=== PATIENT | male | born 1950 | race Caucasian/White ===

== ENCOUNTER 2016-05-21 08:02 | Day surgery (SDC) | END 2016-05-21 14:57 | disposition home or self-care (01) | DX: K80.10 Calculus of gallbladder with chronic cholecystitis without obstruction (principal); E11.9 Type 2 diabetes mellitus without complications | CPT/HCPCS: 47562; 82962; 88304; J0330; J1100; J1170; J2175; J2370; J2405; J2765; J3010 ==

== ENCOUNTER 2017-04-06 13:06 | Emergency (ER) | payer MEDICARE, OTHER ==
[~2017-04-06] VITALS: Wt 91.1 kg
[~2017-04-06 13:06] MED LIST: CHOL2000 PO; ERYT1OIN6 LEFT EYE; IBUP-1542 PO; METF500T4 PO; SITA1TAB7 PO; TAMS0.4C2 PO
--- NOTE | 2017-04-06 13:36 | ERD ---
ER Documentation Chief Complaint Chief Complaint LEFT EAR CLOGGED FOR THE PAST FEW DAYS. NO DRAINAGE NOTED. HPI 67-year-old male, previously healthy, presents to the emergency department complaining of progressive left ear discomfort for 1 week associated with clogging sensation and itchiness. Denies pain, fever, no ear drainage, no foreign body. He attempted some [id number] medication without improvement of the symptoms. ROS A 12-point review of systems was performed and negative other than presented in the history of present illness. SYSTEMIC symptoms: no fever, chills, no night sweats, no weight loss EYE symptoms: No blurred vision, no eye discharge OTOLARYNGEAL symptoms: Per HPI CARDIOVASCULAR symptoms: No chest pain or discomfort, no palpitations. PULMONARY symptoms: No dyspnea, no cough, no wheezing. GASTROINTESTINAL symptoms: No abdominal pain, no nausea, no vomiting, no diarrhea MUSCULOSKELETAL symptoms: No arthralgias, no muscle aches. NEUROLOGY symptoms: No confusion, no syncope, no numbness or tingling. SKIN: No rashes Medications Home Meds Active Scripts Carbamide Peroxide (Ear Wax Drops) 15 Ml Drops, 5-10 DROP OTIC TID for 5 Days, # 1 BOTTLE Prov:JESSE MCMILLAN MD 04/06/17 Ibuprofen* (Motrin*) 600 Mg Tab, 600 MG PO Q6, #30 TAB Prov:HANS MALIK PA-C 02/16/16 Erythromycin (Erythromycin Opth) 3.5 Gm Oint..gm., 1 APPLIC LEFT EYE QID for 7 Days, EA Prov:STARLA HALLMAN PA-C 03/08/15 Reported Medications Metformin* (Glucophage*) 500 Mg Tab, 1 TAB PO AC BREAKFAST DINNER, #60 05/21/16 Cholecalciferol* (Vitamin D3*) 2,000 Unit Cap, 2000 UNIT PO DAILY, CAP 11/17/14 Sitagliptin Phos-Metformin Hcl (Janumet) 50-1,000 Mg Tablet, 1 TAB PO BID, TAB 11/17/14 Tamsulosin Hcl* (Tamsulosin Hcl*) 0.4 Mg Cap.er.24h, 0.4 MG PO DAILY, CAP 11/17/14 Allergies Allergies: Coded Allergies: No Known Allergy (Unverified , 06/25/14) PMhx/Soc History of Surgery: Yes (LEFT KNEE, LEFT SHOULDER, SKIN CA) Anesthesia Reaction: No Hx Neurological Disorder: No Hx Respiratory Disorders: No Hx Cardiac Disorders: No Hx Psychiatric Problems: No Hx Miscellaneous Medical Probl: No Hx Alcohol Use: No Hx Substance Use: No Hx Tobacco Use: No Physical Exam Vitals Vital Signs Date Time Temp Pulse Resp B/P Pulse Ox O2 Delivery O2 Flow Rate FiO2 04/06/17 13:12 98.2 80 20 117/62 97 Physical Exam Patient is in no acute distress, vital signs stable. Alert and fully oriented. EYES: PERRLA, EOMI, Sclera and conjunctiva appear normal. EARS: Left ear: Impacted cerumen, tympanic membrane not visualized. Contralateral ear normal THROAT: Normal oropharynx. NECK: Supple, No lymphadenopathy. Full ROM without pain or tenderness. HEART: RRR, no rubs, murmurs, clicks or gallops. LUNGS: Clear to auscultation. ABDOMEN: Soft, non-tender without masses or hepatosplenomegaly. EXTREMITIES: No edema bilaterally. BACK: Full ROM, no deformity, normal back exam NEURO: Cranial nerves grossly intact, no motor or sensory deficit Procedures/MDM 67-year-old male, presents to the emergency department for progressive ear clogging sensation for 2 weeks Vital signs stable, Physical exam consistent with left ear cerumen impaction. Differential diagnosis include but not limited to: Otitis, foreign body, cholesteatoma, low suspicion for malignant otitis, mastoiditis, tumor. Physical examination and clinical presentation consistent most likely with cerumen impaction. During the ED course the patient remained stable, no new complaints. The patient received an ear lavage with partial removal of the cerumen impaction. Results and clinical impression discussed with patient who agrees with management. The patient is stable to be treated outpatient and will be discharged home with a Rx for earwax softeners, he was instructed to return in 5 days for a new ear lavage. Instructions explained and given directly by me to the patient in Japanese with acknowledgment and demonstrated understanding. Disclaimer: Inadvertent spelling and grammatical errors are likely due to EHR/ dictation software use and do not reflect on the overall quality of patient care. Also, please note that the electronic time recorded on this note does not necessarily reflect the actual time of the patient encounter. Departure Diagnosis: Primary Impression: Impacted cerumen of left ear Condition: Stable Additional Instructions: Call your primary care doctor TOMORROW for an appointment during the next 1-2 days. See the doctor sooner or return here if your condition worsens before your appointment time. Thank you very much for allowing us to participate in your care. Your health and safety is our top priority at [facility]. Have prescriptions filled and follow precisely the directions on the label. Follow-up with primary care provider during the next 4 days and bring all the information and medications prescribed. If illness has not improved in 2 days, then make an appointment with primary care provider. If the provider is unavailable, return to the Emergency Department immediately. JESSE MCMILLAN MD Apr 06, 2017 13:36
[2017-04-06] MEDS ORDERED: CARB15DR61 OTIC (14:51)
== END 2017-04-06 15:01 | disposition home or self-care (01) ==
LOC: FTE 13:06
DX: H61.22 Impacted cerumen, left ear (principal); Z85.828 Personal history of other malignant neoplasm of skin; Z79.84 Long term (current) use of oral hypoglycemic drugs
CPT/HCPCS: 99283

== ENCOUNTER 2017-04-09 14:50 | Emergency (ER) | payer MEDICARE ==
[~2017-04-09] VITALS: Wt 90.4 kg
[~2017-04-09 14:50] MED LIST changes: +CARB15DR61 OTIC
--- NOTE | 2017-04-09 17:43 | ERD ---
ER Documentation Chief Complaint Chief Complaint recheck for hearing loss HPI 67-year-old male presents for recheck on left ear impacted cerumen. Apparently the wax was too hard when seen last week and was prescribed Cerumenex advised to recheck for possible repeat lavage. Patient is no bleeding, fevers, additional complaints except for persistent congested left hearing. ROS All systems reviewed and are negative except as per history of present illness. Medications Home Meds Active Scripts Carbamide Peroxide (Ear Wax Drops) 15 Ml Drops, 5-10 DROP OTIC TID for 5 Days, # 1 BOTTLE Prov:JESSE MCMILLAN MD 04/06/17 Ibuprofen* (Motrin*) 600 Mg Tab, 600 MG PO Q6, #30 TAB Prov:HANS MALIK PA-C 02/16/16 Erythromycin (Erythromycin Opth) 3.5 Gm Oint..gm., 1 APPLIC LEFT EYE QID for 7 Days, EA Prov:STARLA HALLMAN PA-C 03/08/15 Reported Medications Metformin* (Glucophage*) 500 Mg Tab, 1 TAB PO AC BREAKFAST DINNER, #60 05/21/16 Cholecalciferol* (Vitamin D3*) 2,000 Unit Cap, 2000 UNIT PO DAILY, CAP 11/17/14 Sitagliptin Phos-Metformin Hcl (Janumet) 50-1,000 Mg Tablet, 1 TAB PO BID, TAB 11/17/14 Tamsulosin Hcl* (Tamsulosin Hcl*) 0.4 Mg Cap.er.24h, 0.4 MG PO DAILY, CAP 11/17/14 Allergies Allergies: Coded Allergies: No Known Allergy (Unverified , 06/25/14) PMhx/Soc History of Surgery: Yes (LEFT KNEE, LEFT SHOULDER, SKIN CA) Anesthesia Reaction: No Hx Neurological Disorder: No Hx Respiratory Disorders: No Hx Cardiac Disorders: No Hx Psychiatric Problems: No Hx Miscellaneous Medical Probl: No Hx Alcohol Use: No Hx Substance Use: No Hx Tobacco Use: No Smoking Status: Never smoker Physical Exam Vitals Vital Signs Date Time Temp Pulse Resp B/P Pulse Ox O2 Delivery O2 Flow Rate FiO2 04/09/17 15:34 99.3 77 18 131/66 97 Physical Exam Const: [] Alert, [id number]. Head: Atraumatic Eyes: Normal Conjunctiva ENT: Normal External Ears, Nose and Mouth. Impacted cerumen left ear. Neck: Full range of motion..~ No meningismus. Resp: Clear to auscultation bilaterally Cardio: Regular rate and rhythm, no murmurs Abd: Soft, non tender, non distended. Normal bowel sounds Skin: No petechiae or rashes Back: No midline or flank tenderness Ext: No cyanosis, or edema Neur: Awake and alert Psych: Normal Mood and Affect Procedures/MDM Ear lavage performed TM was normal after lavage. Patient presents with left impacted cerumen successfully lavaged without evidence of mastoiditis, perforation, additional complications. We discharged home with primary care follow-up and return precautions. Departure Diagnosis: Primary Impression: Impacted cerumen, left ear Condition: Stable Patient Instructions: Cerumen Impaction, Home Care Additional Instructions: Recheck for new or worsening symptoms or primary care doctor. ANTONIO PIMENTEL MD Apr 09, 2017 17:43
== END 2017-04-09 18:11 | disposition home or self-care (01) ==
LOC: FTE 14:50
DX: H61.22 Impacted cerumen, left ear (principal); Z79.84 Long term (current) use of oral hypoglycemic drugs; Z85.828 Personal history of other malignant neoplasm of skin